=== PATIENT | female | born 1980 | race Caucasian/White ===

== ENCOUNTER 2018-06-05 14:48 | Outpatient (CLI) | payer OTHER ==
--- NOTE | 2018-06-05 16:09 | XRAY Report ---
Reason: L ANKLE INJURY Procedure Date: 06/05/2018 Accession Number: [id number] / [id number] Procedure: XR - Ankle 3 View LT CPT Code: FULL RESULT: EXAM: LEFT ANKLE RADIOGRAPHY EXAM DATE: 06/05/2018 03:01 PM. CLINICAL HISTORY: L ANKLE INJURY. COMPARISON: None. TECHNIQUE: 3 views. FINDINGS: Bones: There is a rectangular bone density seen inferior to the tip of the medial malleolus and medial to and partially obscured by the talus, most likely representing an accessory ossicle such as an os subtiale or an os trigonum. No other fractures or bone lesions. Joints: No effusion. No subluxations. The ankle mortise is normally aligned. Soft Tissues: Moderate soft tissue swelling, lateral greater than medial. IMPRESSION: Moderate soft tissue swelling left ankle. No definite acute fracture. What is likely an accessory ossicle is present. However if there is persistent swelling or persistent pain suggest follow-up x-rays in 7-10 days for repeat assessment. [facility]
== END 2018-06-05 14:49 | disposition home or self-care (01) ==
LOC: DI 14:48
PROVIDERS: ATTEND Specialist
DX: S99.912A Unspecified injury of left ankle, initial encounter (principal)

== ENCOUNTER 2018-06-12 14:17 | Outpatient (CLI) | payer OTHER ==
--- NOTE | 2018-06-12 16:07 | XRAY Report ---
Reason: LEFT ANKLE INJURY Procedure Date: 06/12/2018 Accession Number: [id number] / [id number] Procedure: XR - Ankle 3 View LT CPT Code: FULL RESULT: EXAM: LEFT ANKLE RADIOGRAPHY EXAM DATE: 06/12/2018 02:36 PM. CLINICAL HISTORY: LEFT ANKLE INJURY. COMPARISON: Left ankle 06/05/2018. TECHNIQUE: 3 views. FINDINGS: Again seen is a rectangular ossific density adjacent to the medial talus. Again favor a normal ossicle versus a fracture. There is medial and lateral soft tissue swelling. No acute bone findings are seen in other regards. IMPRESSION: Normal ossicle versus a fracture about the medial talus. CT is available as indicated. [facility]
== END 2018-06-12 14:18 | disposition home or self-care (01) ==
LOC: DI 14:17
PROVIDERS: ATTEND Specialist
DX: S99.912A Unspecified injury of left ankle, initial encounter (principal); M25.572 Pain in left ankle and joints of left foot

== ENCOUNTER 2018-08-05 14:47 | Outpatient (CLI) | payer OTHER ==
--- NOTE | 2018-08-06 10:38 | MRI Report ---
Reason: LEGANOUTOUS INJURY L ANKLE NOT HEALING Procedure Date: 08/05/2018 Accession Number: [id number] / [id number] Procedure: MRI - Ankle LT W/O CPT Code: FULL RESULT: EXAM: LEFT ANKLE/HINDFOOT MRI WITHOUT CONTRAST EXAM DATE: 08/05/2018 04:03 PM. CLINICAL HISTORY: Left ankle pain after twisting injury 2 months ago. Concern for ligament injury. COMPARISON: ANKLE 3 VIEW LT 06/12/2018 2:29 PM ANKLE 3 VIEW LT 06/05/2018 2:51 PM. TECHNIQUE: Multiplanar, multisequence T1-weighted and fluid-sensitive sequences of the ankle/hindfoot without contrast. Other: None. FINDINGS: Bones and Articular Cartilage: Minimal marrow edema at the posterior aspect of the medial malleolus. There is an approximately 1 x 0.7 x 0.4 cm bone fragment with marrow edema adjacent to the medial aspect of the posterior talar facet suspicious for a mildly displaced subacute fracture. This bone fragment corresponds to the bone fragment seen on the previous radiographs. An os naviculare variant is present. Articular cartilage is within normal limits. Minimal marrow edema at the medial aspect of the navicular. Ligaments: The tibiofibular ligaments are intact. There is a tear at the anterior talofibular ligament. The posterior talofibular ligament is intact. There is a tear at the fibular side of the calcaneal fibular ligament. Tear of the deep deltoid ligaments. The superficial deltoid and spring ligaments are intact. Anterior Tendons: The tibialis anterior, extensor hallucis longus, and extensor digitorum longus tendons are unremarkable. Medial Tendons: Mild posterior tibialis tenosynovitis. The flexor digitorum longus and flexor hallucis longus tendons are unremarkable. Lateral Tendons: Minimal peroneal longus and brevis tenosynovitis. No tear. Achilles Tendon: The Achilles tendon is unremarkable. Musculature: No edema or fatty atrophy. Other: Small tibiotalar and subtalar joint effusions. The contents of the sinus tarsi and tarsal tunnel are unremarkable. No plantar fasciitis. Subcutaneous edema at the anterior and medial aspects of the ankle. IMPRESSION: 1. Mildly displaced, subacute appearing fracture at the medial aspect of the posterior talar facet. 2. Tears at the anterior talofibular, calcaneofibular, and deep deltoid ligaments. 3. Mild posterior tibialis tenosynovitis. Minimal peroneal longus and brevis tenosynovitis. No tendon tear. 4. Small tibiotalar and subtalar joint effusions. 5. Subcutaneous edema at the anterior and medial aspects of the ankle. [facility] MUSCULOSKELETAL RADIOLOGY SECTION
== END 2018-08-05 14:48 | disposition home or self-care (01) ==
LOC: DI 14:47
PROVIDERS: ATTEND Podiatrist
DX: S92.132A Displaced fracture of posterior process of left talus, initial encounter for closed fracture (principal); S93.492A Sprain of other ligament of left ankle, initial encounter; S93.412A Sprain of calcaneofibular ligament of left ankle, initial encounter; S93.422A Sprain of deltoid ligament of left ankle, initial encounter; M65.872 Other synovitis and tenosynovitis, left ankle and foot; M25.472 Effusion, left ankle